=== PATIENT | female | born 1975 | race American Indian/Alaskan Native ===

== ENCOUNTER 2017-03-01 16:01 | Emergency (ER) | payer MEDICAID ==
--- NOTE | 2017-03-01 19:10 | XRay Report ---
FINAL REPORT PROCEDURE: XR FOOT 3+V LT TECHNIQUE: Three views of the left foot are obtained HISTORY: injury/lt foot pain COMPARISON: No prior studies are available for comparison. FINDINGS: Soft tissue swelling is seen dorsally. There is a well corticated small bony density adjacent to the dorsum of the talonavicular joint. This is likely an accessory ossicle or old fracture fragment. A more recent nondisplaced small avulsion fracture of the dorsum of the navicular bone may be present but this could be old. IMPRESSION: Well corticated bony density in the dorsum of the foot is probably accessory ossicle, but there is another small linear density adjacent to the dorsum of the navicular bone that could be a recent avulsed fracture fragment.
--- NOTE | 2017-03-01 19:11 | XRay Report ---
FINAL REPORT PROCEDURE: XR ANKLE 3+V LT TECHNIQUE: Three views of the left ankle are obtained HISTORY: Injury/lt ankle pain COMPARISON: No prior studies are available for comparison. FINDINGS: Soft tissue swelling is seen. No widening of the ankle mortise is seen. Mild arthritic changes are seen. Likely accessory ossicle is seen in the dorsum of the hindfoot but there could be a tiny avulsed fracture fragment of the dorsum of the navicular bone. IMPRESSION: Possible tiny nondisplaced avulsion fracture fragment is seen of the dorsum of the navicular bone.
--- NOTE | 2017-03-01 20:41 | Emergency Department Report ---
HPI - General Chief Complaint: Extremity Injury, Lower Time Seen by Provider: 03/01/17 20:13 - HPI HPI: 41-year-old female presents today complaining of left ankle pain since this morning. Patient states that she twisted her ankle when stepping down. Positive for similar injuries with fractures 9 and 6 years ago. When asked to point at the location of pain, patient points to the proximal dorsal aspect of her left foot. Denies numbness, weakness, paresthesias. Describes her pain as a 7 out of 10 with palpation and to 10 with weightbearing. Denies fever, chills , nausea, vomiting, chest pain, shortness of breath, abdominal pain. ED Past Medical Hx - Past Medical History Previous Medical History?: No - Surgical History Past Surgical History?: Yes Additional Surgical History: - Medications Home Medications: Home Medications Medication Instructions Recorded Confirmed Last Taken Type Naproxen [Naprosyn] 500 mg PO BID #20 tablet 03/01/17 Unknown Rx ED Review of Systems ROS: Stated complaint: FALL, LEFT FOOT INJURY Other details as noted in HPI Constitutional: denies: chills, fever, malaise Eyes: denies: eye pain ENT: denies: ear pain, throat pain, congestion Respiratory: denies: cough, shortness of breath, wheezing Cardiovascular: denies: chest pain, palpitations Endocrine: no symptoms reported Gastrointestinal: denies: abdominal pain, nausea, vomiting Musculoskeletal: arthralgia Neurological: denies: headache, weakness, numbness, paresthesias Physical Exam - Physical Exam Vital Signs: Vital Signs 03/01/17 17:28 Temperature 98.2 F Pulse Rate 91 H Respiratory 18 Rate Blood Pressure 129/75 O2 Sat by Pulse 100 Oximetry Physical Exam: GENERAL: The patient is well-developed and well-nourished. Patient is in NAD. HEAD: Normocephalic. Atraumatic. NECK: Supple, nontender, without lymphadenopathy. No meningitic signs are noted. CHEST/LUNGS: Clear to auscultation throughout. HEART/CARDIOVASCULAR: Regular rate and rhythm. No murmurs, rubs or gallops. ABDOMEN: Abdomen is soft, nontender. Bowel sounds normoactive. No guarding or rebound tenderness. EXTREMITIES: Full left ankle range of motion, nonpainful. Mild tenderness to palpation over the dorsal aspect of the left navicular bone. Normal sensation. Peripheral pulses intact. Capillary refill less than 2 seconds. Otherwise musculoskeletal exam is unremarkable. NEURO: Alert and oriented x 3. Normal gait. ED Course Vital Signs 03/01/17 17:28 Temperature 98.2 F Pulse Rate 91 H Respiratory 18 Rate Blood Pressure 129/75 O2 Sat by Pulse 100 Oximetry ED Medical Decision Making - Lab Data Vital Signs 03/01/17 17:28 Temperature 98.2 F Pulse Rate 91 H Respiratory 18 Rate Blood Pressure 129/75 O2 Sat by Pulse 100 Oximetry - Radiology Data Radiology results: report reviewed PROCEDURE: XR ANKLE 3+V LT TECHNIQUE: Three views of the left ankle are obtained HISTORY: Injury/lt ankle pain COMPARISON: No prior studies are available for comparison. FINDINGS: Soft tissue swelling is seen. No widening of the ankle mortise is seen. Mild arthritic changes are seen. Likely accessory ossicle is seen in the dorsum of the hindfoot but there could be a tiny avulsed fracture fragment of the dorsum of the navicular bone. IMPRESSION: Possible tiny nondisplaced avulsion fracture fragment is seen of the dorsum of the navicular bone. PROCEDURE: XR FOOT 3+V LT TECHNIQUE: Three views of the left foot are obtained HISTORY: injury/lt foot pain COMPARISON: No prior studies are available for comparison. FINDINGS: Soft tissue swelling is seen dorsally. There is a well corticated small bony density adjacent to the dorsum of the talonavicular joint. This is likely an accessory ossicle or old fracture fragment. A more recent nondisplaced small avulsion fracture of the dorsum of the navicular bone may be present but this could be old. IMPRESSION: Well corticated bony density in the dorsum of the foot is probably accessory ossicle, but there is another small linear density adjacent to the dorsum of the navicular bone that could be a recent avulsed fracture fragment. - Medical Decision Making 41-year-old female presents today complaining of left ankle pain. Twisting injury. Her x-ray results revealed soft tissue swelling and an accessory ossicle, there is another small linear density adjacent to the dorsum of the navicular bone that could be a recent avulsed fracture. Patient has been provided with a referral for orthopedic. Her foot has been Bernardo wrapped. Patient is recommended to follow rice therapy. Patient is in no acute distress at this time. She will be discharged home and is encouraged to follow up with a primary care provider. She will be sent home on Naprosyn and is encouraged to return to the emergency room for any worsening symptoms. Critical care attestation.: If time is entered above; I have spent that time in minutes in the direct care of this critically ill patient, excluding procedure time. ED Disposition Clinical Impression: Foot pain Qualifiers: Laterality: left Qualified Code(s): M79.672 - Pain in left foot Disposition: TO HOME OR SELFCARE Is pt being admited?: No Does the pt Need Aspirin: No Condition: Stable Instructions: Arthralgia (ED), Foot Fracture in Adults (ED), Foot Sprain (ED) Additional Instructions: Follow-up with primary care provider and orthopedic. Return to the emergency department if symptoms worsen. Prescriptions: Naproxen [Naprosyn] 500 mg PO BID #20 tablet Referrals: PRIMARY MD MACKENZIE [Primary Care Provider] - 3-5 Days ANNIE LUNA MD [Staff Physician] - 3-5 Days Forms: Work/School Release Form(ED) Time of Disposition: 21:53
[2017-03-01 22:39] VITALS: BP 138/90
== END 2017-03-01 22:59 | disposition home or self-care (01) ==
LOC: ED 16:01
DX: M25.572 Pain in left ankle and joints of left foot (principal); M79.672 Pain in left foot